=== PATIENT | male | born 1985 | race African-American/Black ===

== ENCOUNTER 2018-08-09 15:21 | Emergency (ER) | payer MEDICAID ==
[~2018-08-09] VITALS: Ht 177.8 cm; Wt 104.7 kg
[~2018-08-09 15:21] MED LIST: AMLO10TA6 PO; ATOR-2 PO; CHLO25TA PO; INSU100I13 SQ-INSULIN; LISI-167 PO; METF500T3 PO
[2018-08-09 15:25] VITALS: BP 156/84
[2018-08-09] MEDS ORDERED: LIDOCAINE-MPF 1%, 5ML ONE (15:51)
[2018-08-09] MEDS ORDERED: LIDOCAINE-MPF 1%, 5ML INFIL ONE (16:00)
== END 2018-08-09 16:30 | disposition home or self-care (01) ==
LOC: ED 16:26
DX: L03.011 Cellulitis of right finger (principal); E11.9 Type 2 diabetes mellitus without complications; E78.5 Hyperlipidemia, unspecified; E78.00 Pure hypercholesterolemia, unspecified; I10 Essential (primary) hypertension; Z86.73 Personal history of transient ischemic attack (TIA), and cerebral infarction without residual deficits
CPT/HCPCS: 10060; 99283

== ENCOUNTER 2018-10-12 16:49 | Emergency (ER) | payer SELFPAY ==
[~2018-10-12] VITALS: Ht 172.7 cm; Wt 100.0 kg
[2018-10-12 17:22] VITALS: BP 149/89
--- NOTE | 2018-10-12 17:39 | NUR ---
PT REPORTS COUGH FOR 3 DAYS WITH CHEST CONGESTION. PT REPORTS HAD PENUMONIA RECENTLY. PT DENIES ANY FEVER BUT HAS HAD BODY ACHES AND DECREASED ENERGY. PT CONNECTED TO MONITORS AND CALL LIGHT IN REACH. VSS
[2018-10-12] MEDS ORDERED: ACETAMINOPHEN 500 MG TABLET ONE (17:43)
[2018-10-12] MEDS ORDERED: ACETAMINOPHEN 500 MG TABLET PO ONE (17:45)
[2018-10-12 17:56] LABS: RAPID INFLUENZA A Negative (Negative); RAPID INFLUENZA B Negative (Negative)
[2018-10-12 18:19] LABS: MEAN CORPUSCULAR HEMOGLOBIN 29.9 pg (27.5-34.5); MEAN CORPUSCULAR HGB CONC 32.6 g/dL (33.2-36.2); MEAN CORPUSCULAR VOLUME 91.5 fL (81-97); MEAN PLATELET VOLUME 8.3 fL (7.4-10.4); PLATELET COUNT 285 x10^3/uL (130-400); RED BLOOD COUNT 5.02 x10^6/uL (4.38-5.82)
[2018-10-12 18:27] LABS: ALANINE AMINOTRANSFERASE 39 U/L (12-78); ALBUMIN 3.6 g/dL (3.4-5.0); ANION GAP 8 mmol/L (5-15); CALCIUM 8.6 mg/dL (8.5-10.1); CHLORIDE 106 mmol/L (98-107)
[2018-10-12 18:30] LABS: ALKALINE PHOSPHATASE 92 U/L (45-117); BILIRUBIN,TOTAL 1.9 mg/dL (0.2-1.0); CREATININE 1.37 mg/dL (0.7-1.3); TOTAL PROTEIN 7.7 g/dL (6.4-8.2)
[2018-10-12 18:41] LABS: MD YES
[2018-10-12 18:43] LABS: <RBC MORPHOLOGY> NORMAL; BAND#(MANUAL) 1.25 x10^3/uL; BANDS%(MANUAL) 7 % (0-7); BASOS#(MANUAL) 0.18 x10^3/uL (0-0.1); BASOS% (MANUAL) 1 % (0-1); LYMPH#(MANUAL) 4.27 x10^3/uL (1-3.4); LYMPHS% (MANUAL) 24 % (22-44); MONOS#(MANUAL) 0.36 x10^3/uL (0.3-2.7); MONOS% (MANUAL) 2 % (2-9); SEG#(MANUAL) 11.75 x10^3/uL (1.8-6.8); SEGS% (MANUAL) 66 % (42-75)
[2018-10-12 18:44] LABS: <PLATELET ESTIMATE> ADEQUATE; <PLT MORPHOLOGY> NORMAL PLT MORPH
--- NOTE | 2018-10-12 18:56 | NUR ---
UA SENT TO LAB
[2018-10-12 19:05] LABS: MICROSCOPIC AUTO
[2018-10-12 19:07] LABS: CULTURE INDICATED? YES
--- NOTE | 2018-10-12 19:16 | NUR ---
Patient/Caregiver given discharge instructions and they have confirmed that they understand the instructions. Patient ambulatory with steady gait.
== END 2018-10-12 19:22 | disposition home or self-care (01) ==
LOC: ED 17:39
DX: B34.9 Viral infection, unspecified (principal); D72.829 Elevated white blood cell count, unspecified; F17.200 Nicotine dependence, unspecified, uncomplicated; E78.5 Hyperlipidemia, unspecified; E78.00 Pure hypercholesterolemia, unspecified; I10 Essential (primary) hypertension; E11.9 Type 2 diabetes mellitus without complications
CPT/HCPCS: 36415; 71046; 80053; 81001; 85025; 87086; 87400; 99284

== ENCOUNTER 2018-12-05 10:02 | Emergency (ER) | payer OTHER ==
[~2018-12-05] VITALS: Ht 177.8 cm; Wt 105.1 kg
[~2018-12-05 10:02] MED LIST changes: -AMLO10TA6 PO; +AMLO10TA8 PO
[2018-12-05 10:12] VITALS: BP 156/112
[2018-12-05] MEDS ORDERED: KETOROLAC 30 MG/1 ML IM ONE (11:00)
[2018-12-05] MEDS ORDERED: KETOROLAC 30 MG/1 ML ONE (11:14)
== END 2018-12-05 12:30 | disposition home or self-care (01) ==
LOC: ED 12:25
DX: S62.326A Displaced fracture of shaft of fifth metacarpal bone, right hand, initial encounter for closed fracture (principal); G89.11 Acute pain due to trauma; M79.641 Pain in right hand; F17.210 Nicotine dependence, cigarettes, uncomplicated; W22.8XXA Striking against or struck by other objects, initial encounter; Y93.89 Activity, other specified; Y92.89 Other specified places as the place of occurrence of the external cause; Y99.8 Other external cause status
CPT/HCPCS: 29125; 73130; 82962; 96372; 99283; J1885

== ENCOUNTER 2018-12-15 09:22 | Emergency (ER) | payer SELFPAY ==
[~2018-12-15] VITALS: Ht 177.8 cm; Wt 104.6 kg
[2018-12-15 09:35] VITALS: BP 154/95
--- NOTE | 2018-12-15 10:11 | NUR ---
Pt here for work note & would like rx refill on multiple BP/DM meds as he has been unable to re-establish primary care. Was also unable to fill anti-viral for shingles due to financial constraints.
== END 2018-12-15 10:35 | disposition home or self-care (01) ==
LOC: ED 10:29
DX: E11.9 Type 2 diabetes mellitus without complications (principal); I10 Essential (primary) hypertension; E78.5 Hyperlipidemia, unspecified; Z76.0 Encounter for issue of repeat prescription
CPT/HCPCS: 99283